=== PATIENT | male | born 2000 | race Hispanic/Latino ===

== ENCOUNTER → 2023-12-30 | Outpatient (CLI) | payer OTHER ==
[~2023-12-30] MED LIST: IOHEXOL 350 MG/ML 100ML INFUS..BTL IV ONE
--- NOTE | 2023-12-30 12:58 | HMCIMG ---
CT ORB/EVELIN/EAR W/WO CONTRAST REASON: CHRONIC SUPPURATIVE OTITIS MEDIA LEFT EAR COMPARISON: None TECHNIQUE: High-resolution imaging protocol was performed using 1 mm sections in the axial plane following IV contrast, 100 cc Omnipaque 350. Sagittal and coronal reconstruction images were performed. FINDINGS: There is extensive opacification of all visible mastoid air cells on the left. There is a central cavity measuring 12 x 18 mm in the axial plane, this extends to the lateral temporal bone margin, appearance consistent with a surgical defect. There is extensive otitis externa with complete filling in of the left external auditory canal. There is fluid filling the middle ear as well, ossicular chain appears intact. The scutum appears intact. Temporal bone structures on the right appear unremarkable. The paranasal sinuses are included in the exam, there is partial opacification of the frontal, ethmoid and sphenoid sinuses, there is mild mucosal thickening in the maxillary sinuses. Postcontrast images were performed. There are no focal areas of abnormal contrast enhancement. IMPRESSION: 1. Extensive inflammatory changes in the right temporal bone, all visualized mastoid air cells are fluid-filled, middle ear is fluid-filled, the external auditory canal is occluded 2. There is a large defect centrally in the mastoid air cells consistent with the history of partial mastoidectomy surgery. 3. There is diffuse partial nasal sinus opacification as described.
== END | disposition home or self-care (01) ==
LOC: RAH 10:30
PROVIDERS: ATTEND Family Medicine
DX: M86.8X8 Other osteomyelitis, other site (principal); H66.3X2 Other chronic suppurative otitis media, left ear; J30.9 Allergic rhinitis, unspecified; H95.89 Other postprocedural complications and disorders of the ear and mastoid process, not elsewhere classified
CPT/HCPCS: 70482; Q9967